=== PATIENT | male | born 1965 | race Caucasian/White ===

== ENCOUNTER 2017-04-29 10:09 | Observation (INO) | payer SELFPAY ==
--- NOTE | 2017-04-29 10:13 | EDM.PDOC ---
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 sugars. He does not take Accu-Cheks at home. Qualifiers: Laterality: unspecified laterality Qualified Code(s): H83.09 - Labyrinthitis, unspecified ear (3) Dyslipidemia SNOMED Code(s): 052254811 Code(s): E78.5 - HYPERLIPIDEMIA, UNSPECIFIED Status: Chronic Priority: Medium Current Visit: Yes Annotation/Comment:: Under therapy (4) Hypertension SNOMED Code(s): 80815389 Code(s): I10 - ESSENTIAL (PRIMARY) HYPERTENSION Status: Chronic Priority : Medium Current Visit: Yes Annotation/Comment:: Somewhat elevated both at the [facility] in [place] and also on arrival to this facility. Normal blood pressures, including orthostatic blood pressures prior to discharge Qualifiers: Hypertension type: essential hypertension Qualified Code(s): I10 - Essential (primary) hypertension (5) Hyperuricemia SNOMED Code(s): 15444405 Code(s): E79.0 - HYPERURICEMIA W/O SIGNS OF INFLAM ARTHRIT AND TOPHACEOUS DIS Status: Acute Priority: Medium Current Visit: Yes Onset Date: Annotation/Comment:: Newly diagnosed. Close follow-up by regular provider. Note current Lasix therapy. Diet provided with no previous history of gout attacks (6) Incomplete right bundle branch block (RBBB) SNOMED Code(s): 301213436 Code(s): I45.10 - UNSPECIFIED RIGHT BUNDLE-BRANCH BLOCK Status: Acute Priority: High Current Visit: Yes Onset Date: 04/29/17 Annotation/Comment: : Borderline incomplete right bundle branch block. Observe for now with repeat EKG at in the a.m. Initiate standard rule out SD orders. Further cardiology consultation and/or workup depending on his clinical course. Note recent echocardiogram in October 2016 as above (7) Leukocytosis SNOMED Code(s): 642671566, 728243283 Code(s): D72.829 - ELEVATED WHITE BLOOD CELL COUNT, UNSPECIFIED Status: Acute Priority: Medium Current Visit: Yes Onset Date: 04/29/17 Annotation/Comment:: Patient is afebrile with no evidence of acute infection. Likely stress reaction from his nausea and emesis. Repeat blood work in a.m. Qualifiers: Leukocytosis type: bandemia Qualified Code(s): D72.825 - Bandemia (8) Nausea & vomiting SNOMED Code(s): 52593233 Code(s): R11.2 - NAUSEA WITH VOMITING, UNSPECIFIED Status: Acute Priority : High Current Visit: Yes Onset Date: 04/29/17 Annotation/Comment:: Likely secondary to labyrinthitis as above. Possible concomitant food poisoning at home as above, although no abdominal pain, etc. Observe for now with acute abdominal x-rays in the a.m. Qualifiers: Vomiting type: unspecified Vomiting Intractability: non-intractable Qualified Code(s): R11.2 - Nausea with vomiting, unspecified (9) Renal insufficiency SNOMED Code(s): 964990372 Code(s): N28.9 - DISORDER OF KIDNEY AND URETER, UNSPECIFIED Status: Acute Priority: High Current Visit: Yes Onset Date: 04/29/17 Annotation/ Comment:: Newly diagnosed probable diabetic nephropathy. Observe closely secondary to his Lasix therapy - Problem List Review Problem List Initiated/Reviewed/Updated: Yes - My Orders Last 24 Hours: My Active Orders 04/29/17 10:14 Cardiac Monitoring [RC] . DIRECTED EKG Documentation Completion [RC] ASDIRECTED Oxygen Therapy, ED [RC] CONTINUOUS Peripheral IV Care [RC] . DIRECTED Pulse Oximetry [RC] CONTINUOUS Up With Assistance [RC] PFP Vital Signs [RC] PFP Chest 1V Frontal [CR] Stat Sodium Chloride 0.9% [Saline Flush] 10 ml FLUSH ASDIRECTED PRN Obtain Past Medical Record [OM.PC] Urgent Peripheral IV Insertion Adult [OM.PC] Stat Resuscitation Status Stat 04/29/17 12:02 Promethazine [Phenergan] 50 mg IM Q6H PRN 04/29/17 Breakfast Nothing per Oral Now Diet [DIET] - Assessment/Plan Admission H&P: Please use this note as an admission H&P Last 24 Hours: My Active Orders 04/29/17 10:14 Cardiac Monitoring [RC] . DIRECTED EKG Documentation Completion [RC] ASDIRECTED Oxygen Therapy, ED [RC] CONTINUOUS Peripheral IV Care [RC] . DIRECTED Pulse Oximetry [RC] CONTINUOUS Up With Assistance [RC] PFP Vital Signs [RC] PFP Chest 1V Frontal [CR] Stat Sodium Chloride 0.9% [Saline Flush] 10 ml FLUSH ASDIRECTED PRN Obtain Past Medical Record [OM.PC] Urgent Peripheral IV Insertion Adult [OM.PC] Stat Resuscitation Status Stat 04/29/17 12:02 Promethazine [Phenergan] 50 mg IM Q6H PRN 04/29/17 Breakfast Nothing per Oral Now Diet [DIET] Assessment:: As above Plan: As above. Extensive precautions were given to the patient and his mother, who are in agreement with the treatment plan. The patient's condition is stable enough for observation status and general supervision. [facility] physician assumes care later this afternoon.
[2017-04-29] MEDS ORDERED: Famotidine 20 MG/2 ML SDV IVPUSH ONE (10:14)
[2017-04-29] MEDS ORDERED: Furosemide 40 MG/4 ML VIAL IVPUSH ONE (10:36)
[2017-04-29] MEDS: Sodium Chloride 0.9% 10 ML Syringe FLUSH PRN ×3 (10:44→19:14)
[2017-04-29] MEDS ORDERED: methylPREDNISolone Acetate 80 MG/ML SDV IM ONE (11:52)
[2017-04-29] MEDS ORDERED: Ondansetron 4 MG/2 ML SDV IVPUSH PRN (12:00)
[2017-04-29] MEDS ORDERED: methylPREDNISolone Sodium Succinate 125 MG/2 ML SDV IVPUSH ONE (12:01)
[2017-04-29] MEDS ORDERED: Promethazine 25 MG/ML SDV IM PRN (12:02)
[2017-04-29] MEDS ORDERED: Sodium Chloride 0.9% 10 ML Syringe FLUSH PRN (12:53)
[2017-04-29] MEDS ORDERED: Temazepam 15 MG Cap PO PRN (12:53)
[2017-04-29] MEDS ORDERED: Acetaminophen 325 MG Tab PO PRN (13:00)
[2017-04-29] MEDS: Potassium Chloride 20 MEQ Tab.ER PO SCH (17:34)
[2017-04-29] MEDS: Furosemide 40 MG/4 ML VIAL IVPUSH SCH (19:14)
[2017-04-29] MEDS ORDERED: atorvaSTATin 10 MG Tab PO SCH (20:00)
[2017-04-30] MEDS: Sodium Chloride 0.9% 10 ML Syringe FLUSH PRN (01:15)
[2017-04-30] MEDS: Potassium Chloride 20 MEQ Tab.ER PO SCH (07:25)
[2017-04-30] MEDS: Furosemide 40 MG/4 ML VIAL IVPUSH SCH (07:25)
[2017-04-30] MEDS ORDERED: metFORMIN 500 MG Tab PO SCH (08:00)
[2017-04-30] MEDS ORDERED: Lisinopril 10 MG Tab PO SCH (08:00)
[2017-04-30 08:28] VITALS: BP 146/101
--- NOTE | 2017-04-30 12:47 | PCM.DCSUM1 ---
Discharge Summary - Hospital Course Brief History: Patient admitted for nausea/emesis and vertigo. - Discharge Data Discharge Date: 04/30/17 Discharge Disposition: Home, Self-Care 01 Condition: Good - Discharge Diagnosis/Problem(s) (1) CHF (congestive heart failure) SNOMED Code(s): 90489281 ICD Code: I50.9 - HEART FAILURE, UNSPECIFIED Status: Acute Priority: High Problem Details: Moderate CHF by today's chest x-ray but no BNP elevation. No chest pain or true anginal complaints with otherwise negative cardiac enzymes. Chest pain protocol was not initiated on arrival secondary to absence of anginal-type symptoms. No beta senait therapy was given. Note known previous history of cardiomyopathy. High dose IV Lasix therapy was given in the emergency room. I did extensively discuss with both the patient and his mother concerning my strong recommendations of admission to this facility for further observation, rule out AK, treatment of his CHF, further evaluation of this headache/dizziness, neurological checks, possible future CT scan of the head, etc. with the patient refusing admission despite extensive risks of this decision. He also did not wish to stay at home with his mother for further closer observation. Note subsequent episode of emesis after coming back from the bathroom with patient subsequently changing his mind and agreed to observation in this facility Qualifiers: Congestive heart failure type: unspecified congestive heart failure type Congestive heart failure chronicity: acute on chronic Qualified Code(s): I50.9 - Heart failure, unspecified (2) Hyperuricemia SNOMED Code(s): 33151044 ICD Code: E79.0 - HYPERURICEMIA W/O SIGNS OF INFLAM ARTHRIT AND TOPHACEOUS DIS Status: Acute Priority: Medium Onset Date: 04/29/17 Problem Details : Newly diagnosed. Close follow-up by regular provider. Note current Lasix therapy. Diet provided with no previous history of gout attacks (3) Incomplete right bundle branch block (RBBB) SNOMED Code(s): 387393291 ICD Code: I45.10 - UNSPECIFIED RIGHT BUNDLE-BRANCH BLOCK Status: Acute Priority: High Onset Date: 04/29/17 Problem Details: Stable (4) Labyrinthitis SNOMED Code(s): 58390706 ICD Code: H83.09 - LABYRINTHITIS, UNSPECIFIED EAR Status: Acute Priority : High Onset Date: 04/29/17 Problem Details: Continues to have mild dizziness and is a bit unsteady when ambulating. Self reports that it has improved significantly since admission. Qualifiers: Laterality: unspecified laterality Qualified Code(s): H83.09 - Labyrinthitis, unspecified ear (5) Leukocytosis SNOMED Code(s): 604580575, 744560528 ICD Code: D72.829 - ELEVATED WHITE BLOOD CELL COUNT, UNSPECIFIED Status: Acute Priority: Medium Onset Date: 04/29/17 Problem Details: Further elevation noted this morning. He feels better. Afebrile. No evidence acute infection. Suspect worsening elevation linked to Solumedrol in conjunction with the recent nausea/emesis Qualifiers: Leukocytosis type: bandemia Qualified Code(s): D72.825 - Bandemia (6) Nausea & vomiting SNOMED Code(s): 30707573 ICD Code: R11.2 - NAUSEA WITH VOMITING, UNSPECIFIED Status: Acute Priority: High Onset Date: 04/29/17 Problem Details: resolved Qualifiers: Vomiting type: unspecified Vomiting Intractability: non-intractable Qualified Code(s): R11.2 - Nausea with vomiting, unspecified (7) Renal insufficiency SNOMED Code(s): 404045873 ICD Code: N28.9 - DISORDER OF KIDNEY AND URETER, UNSPECIFIED Status: Acute Priority: High Onset Date: 04/29/17 Problem Details: Slight increased in BUN/Cr today. This may reflect a bit of dehydration given his emesis yesterday as well as not eating/drinking much over the last 24 hours. (8) Dyslipidemia SNOMED Code(s): 835039678 ICD Code: E78.5 - HYPERLIPIDEMIA, UNSPECIFIED Status: Chronic Priority: Medium Problem Details: Under therapy (9) Hypertension SNOMED Code(s): 08042382 ICD Code: I10 - ESSENTIAL (PRIMARY) HYPERTENSION Status: Chronic Priority : Medium Problem Details: Intermittently elevated blood pressures during stay noted. To follow up Tuesday with primary provider. Qualifiers: Hypertension type: essential hypertension Qualified Code(s): I10 - Essential (primary) hypertension - Patient Summary/Data Complications: none Hospital Course: Vertigo significantly improved. Nausea and emesis resolved. Patient did not want to eat the morning once taken off NPO status. Patient terse/short with staff during stay. Made it clear to all staff early in the morning that he planned on leaving [facility]. Refused food. Did accept a Mountain Dew from his mother. Overall angry and stand-offish demeanor. Reviewed morning labs with the patient, including increased WBC/CK/CKMB/BUN/Cr. Solumedrol, GI illness, and decreased PO intake could be a factor in all of these. Troponins were negative. Patient did not have any cardiac complaints while here overnight. BP was elevated at times. Uncertain what he usually runs for readings on average. Patient refused to stay any longer for treatment such as IV fluid or continued monitoring of labs. He was still a bit unsteady on his feet when moving about, but insists he can maneuver from bed to bathroom at home. Extensive precautions given prior to discharge. He will take Meclizine PRN for dizziness. He has follow up with his primary schedule two days from now on Tuesday. - Patient Instructions Diet: Heart Healthy Diet Activity: As Tolerated Driving: Do Not Drive Notify Provider of: Fever, Increased Pain, Nausea and/or Vomiting Other/Special Instructions: Continue regular medications. Follow up Tuesday at scheduled appointment. Follow up in ER if worsening symptoms develop. - Discharge Plan Prescriptions/Med Rec: Meclizine [Antivert] 25 mg PO Q6H PRN #30 tablet PRN Reason: Dizziness Home Medications: Home Meds Furosemide [Lasix] 20 mg PO DAILY 04/29/17 [History] Lisinopril 10 mg PO DAILY 04/29/17 [History] Metoprolol Succinate [Toprol Xl] 50 mg PO DAILY 04/29/17 [History] atorvaSTATin [Lipitor] 10 mg PO BEDTIME 04/29/17 [History] metFORMIN [Glucophage] 500 mg PO DAILY 04/29/17 [History] Meclizine [Antivert] 25 mg PO Q6H PRN #30 tablet 04/30/17 [Rx] Patient Handouts: Low-Purine Diet, Gout, Lpbi-yc-Ftpp, Labyrinthitis, Easy-to- Read, Diabetic Nephropathy, Heart Failure, Paft-cx-Ofik Forms: ED Department Discharge Referrals: Michell Cooper PA [Primary Care Provider] - - Discharge Summary/Plan Comment DC Time >30 min.: No - General Info Date of Service: 04/30/17 Admission Dx/Problem (Free Text: Patient admitted for vertigo, nausea, vomiting. Subjective Update: Has some vertigo, however nausea and emesis resolved. Functional Status: Reports: Pain Controlled, Ambulating, Urinating. Denies: New Symptoms - Review of Systems General: Reports: Appetite (diminished). Denies: Fever, Weakness, Fatigue, Malaise, Chills HEENT: Reports: No Symptoms Pulmonary: Reports: No Symptoms Cardiovascular: Denies: Chest Pain, Palpitations, Dyspnea on Exertion, Orthopnea , PND, Edema Gastrointestinal: Reports: No Symptoms Genitourinary: Reports: No Symptoms Musculoskeletal: Reports: No Symptoms Skin: Reports: No Symptoms Neurological: Reports: Dizziness (improved when laying flat), Difficulty Walking (i). Denies: Confusion, Headache, Numbness, Paresthesia, Pre-Existing Deficit, Seizure, Syncope, Tingling, Tremors, Trouble Speaking, Weakness, Change in Speech Psychiatric: Reports: No Symptoms - Patient Data Vitals - Most Recent: Last Vital Signs Temp 36.7 C 04/30/17 08:00 Pulse 105 H 04/30/17 08:00 Resp 17 04/30/17 08:00 BP 146/101 H 04/30/17 08:00 Pulse Ox 96 04/30/17 08:00 Weight - Most Recent: 104.145 kg I&O - Last 24 hours: Intake & Output 04/29/17 04/30/17 04/30/17 22:59 06:59 14:59 Output Total 1999 Balance -1999 Lab Results - Last 24 hrs: Laboratory Results - last 24 hr 04/29/17 04/29/17 04/30/17 Range/Units 15:53 21:38 07:35 WBC 19.1 H (4.0-10.2) K/uL RBC 5.07 (4.33-5.41) M/uL Hgb 15.6 (13.1-16.8) g/dL Hct 46.2 (39.0-49.0) % MCV 91.1 (84.0-98.0) fL MCH 30.8 (28.2-33.3) pg MCHC 33.8 (31.7-36.0) g/dL RDW 13.0 (11.2-14.1) % Plt Count 235 (150-350) K/uL Neut % (Auto) 83.8 H (45.0-80.0) % Lymph % (Auto) 6.8 L (10.0-50.0) % [place] % (Auto) 9.3 (2.0-14.0) % Eos % (Auto) 0.0 (0.0-5.0) % Baso % (Auto) 0.1 (0.0-2.0) % Neut # (Auto) 16.01 H (1.40-7.00) K/uL Lymph # (Auto) 1.29 (0.50-3.50) K/uL [place] # (Auto) 1.77 H (0.00-1.00) K/uL Eos # (Auto) 0.00 (0.00-0.50) K/uL Baso # (Auto) 0.02 (0.00-0.20) K/uL Sodium (136-145) mmol/L Potassium (3.5-5.1) mmol/L Chloride (98-107) mmol/L Carbon Dioxide (21.0-32.0) mmol/L BUN (7-18) mg/dL Creatinine (0.51-1.17) mg/dL Est Cr Clr Drug Dosing mL/min Estimated GFR (MDRD) mL/min Glucose (74-106) mg/dL Hemoglobin A1c (4.3-5.7) % Calcium (8.5-10.1) mg/dL Total Bilirubin (0.2-1.0) mg/dL AST (15-37) U/L ALT (12-78) U/L Alkaline Phosphatase (46-116) IU/L Creatine Kinase 372 H 429 H (26-308) U/L Creatine Kinase Index 1.0 0.8 (0.0-2.5) % CK-MB (CK-2) 3.60 3.60 (0.00-3.60) ng/mL Troponin I 0.000 0.000 (0.000-0.056) ng/mL Ljs-S-Irhbphvaduc Pept (0-125) pg/mL Total Protein (6.4-8.2) g/dL Albumin (3.4-5.0) g/dL Triglycerides (30-150) mg/dL Cholesterol (100-200) mg/dL LDL Cholesterol, Calc (0-100) mg/dL HDL Cholesterol (40-60) mg/dL 04/30/17 04/30/17 Range/Units 07:35 07:35 WBC (4.0-10.2) K/uL RBC (4.33-5.41) M/uL Hgb (13.1-16.8) g/dL Hct (39.0-49.0) % MCV (84.0-98.0) fL MCH (28.2-33.3) pg MCHC (31.7-36.0) g/dL RDW (11.2-14.1) % Plt Count (150-350) K/uL Neut % (Auto) (45.0-80.0) % Lymph % (Auto) (10.0-50.0) % [place] % (Auto) (2.0-14.0) % Eos % (Auto) (0.0-5.0) % Baso % (Auto) (0.0-2.0) % Neut # (Auto) (1.40-7.00) K/uL Lymph # (Auto) (0.50-3.50) K/uL [place] # (Auto) (0.00-1.00) K/uL Eos # (Auto) (0.00-0.50) K/uL Baso # (Auto) (0.00-0.20) K/uL Sodium 139 (136-145) mmol/L Potassium 4.1 (3.5-5.1) mmol/L Chloride 102 (98-107) mmol/L Carbon Dioxide 25.5 (21.0-32.0) mmol/L BUN 45 H (7-18) mg/dL Creatinine 1.75 H (0.51-1.17) mg/dL Est Cr Clr Drug Dosing 57.71 mL/min Estimated GFR (MDRD) 42 mL/min Glucose 151 H (74-106) mg/dL Hemoglobin A1c 5.9 H (4.3-5.7) % Calcium 9.4 (8.5-10.1) mg/dL Total Bilirubin 0.7 (0.2-1.0) mg/dL AST 26 (15-37) U/L ALT 29 (12-78) U/L Alkaline Phosphatase 64 (46-116) IU/L Creatine Kinase 419 H (26-308) U/L Creatine Kinase Index 1.2 (0.0-2.5) % CK-MB (CK-2) 4.90 H* (0.00-3.60) ng/mL Troponin I 0.011 (0.000-0.056) ng/mL Uxi-J-Eofoqomlczh Pept 267 H (0-125) pg/mL Total Protein 8.6 H (6.4-8.2) g/dL Albumin 4.4 (3.4-5.0) g/dL Triglycerides 46 (30-150) mg/dL Cholesterol 230 H (100-200) mg/dL LDL Cholesterol, Calc 147 H (0-100) mg/dL HDL Cholesterol 74 H (40-60) mg/dL Med Orders - Current: Current Medications Discontinued Medications Acetaminophen (Tylenol) 650 mg PO Q4H PRN PRN Reason: Pain Atorvastatin Calcium (Lipitor) 10 mg PO BEDTIME [facility] Last Admin: 04/29/17 19:14 Dose: 10 mg Famotidine (Pepcid) 40 mg IVPUSH ONETIME ONE Stop: 04/29/17 10:15 Last Admin: 04/29/17 10:43 Dose: 40 mg Furosemide (Lasix) 60 mg IVPUSH NOW ONE Stop: 04/29/17 10:37 Last Admin: 04/29/17 10:41 Dose: 60 mg Furosemide (Lasix) 40 mg IVPUSH Q12H [facility] Last Admin: 04/30/17 07:25 Dose: 40 mg Lisinopril (Prinivil) 10 mg PO DAILY [facility] Last Admin: 04/30/17 07:25 Dose: 10 mg Metformin HCl (Glucophage) 500 mg PO DAILY [facility] Last Admin: 04/30/17 07:25 Dose: 500 mg Methylprednisolone Acetate (Depo-Medrol) 80 mg IM ONETIME ONE Stop: 04/29/17 11:53 Last Admin: 04/29/17 12:04 Dose: Not Given Methylprednisolone Sodium Succinate (Solu-Medrol) 125 mg IVPUSH ONETIME ONE Stop: 04/29/17 12:02 Last Admin: 04/29/17 12:09 Dose: 125 mg Ondansetron HCl (Zofran) 4 mg IVPUSH Q6H PRN PRN Reason: Nausea/Vomiting Potassium Chloride (Klor-Con M20) 20 meq PO BID [facility] Last Admin: 04/30/17 07:25 Dose: 20 meq Promethazine HCl (Phenergan) 50 mg IM Q6H PRN PRN Reason: Nausea/Vomiting Last Admin: 04/29/17 12:08 Dose: 50 mg Sodium Chloride (Saline Flush) 10 ml FLUSH ASDIRECTED PRN PRN Reason: Keep Vein Open Last Admin: 04/30/17 01:15 Dose: 10 ml Sodium Chloride (Saline Flush) 10 ml FLUSH Q12HR PRN PRN Reason: Keep Vein Open Temazepam (Restoril) 15 mg PO BEDTIME PRN PRN Reason: Insomnia - Exam General: Reports: Alert, Oriented, Cooperative HEENT: Reports: Pupils Equal, Pupils Reactive, EOMI, Mucous Membr. Moist/[place]ck: Reports: Supple Lungs: Reports: Clear to Auscultation, Normal Respiratory Effort Cardiovascular: Reports: Regular Rate, Regular Rhythm GI/Abdominal Exam: Normal Bowel Sounds, Soft, Non-Tender, No Distention, No Mass (Male) Exam: Deferred Rectal (Males) Exam: Deferred Back Exam: Reports: Normal Inspection, Full Range of Motion. Denies: CVA Tenderness (L), CVA Tenderness (R) Extremities: Normal Inspection, Normal Range of Motion, Non-Tender, Normal Capillary Refill Skin: Reports: Warm, Dry, Intact Neurological: Reports: No New Focal Deficit Psy/Mental Status: Reports: Alert, Other (Poor eye contact. Terse/short and appears irritated when interacting with staff) EKG INTERPRETATION EKG Date: 04/30/17 Time: 08:46 Rhythm: NSR Rate (Beats/Min): 93 [place]: Normal P-Wave: Present QRS: Normal ST-T: Normal QT: Normal Comparison: Other: (changes indicating incomplete RBBB appear improved.) *Q Meaningful Use (DIS) - VTE *Q VTE Criteria *Q: - Stroke *Q Stroke Criteria *Q: - AMI *Q AMI Criteria *Q:
== END 2017-04-30 11:00 | disposition home or self-care (01) ==
LOC: LL.ED 10:09 → LL.MS 12:05
PROVIDERS: ADMIT Family Medicine; ATTEND Emergency Medicine
DX: R11.2 Nausea with vomiting, unspecified (principal); R42 Dizziness and giddiness; I50.9 Heart failure, unspecified; E79.0 Hyperuricemia without signs of inflammatory arthritis and tophaceous disease; I45.10 Unspecified right bundle-branch block; H83.09 Labyrinthitis, unspecified ear; D72.829 Elevated white blood cell count, unspecified; N28.9 Disorder of kidney and ureter, unspecified; E78.5 Hyperlipidemia, unspecified; I10 Essential (primary) hypertension; Z79.899 Other long term (current) drug therapy
CPT/HCPCS: 36415; 71010; 80053; 80061; 82550; 82553; 83036; 83605; 83735; 83880; 84443; 84484; 84550; 85025; 85379; 85610; 85651; 85730; 93005; 96372; 96374; 96375; 99285; A9270; G0480; J1940; J2550; J2930; J7050; 96376; G0378; S0028